=== PATIENT | female | born 1990 | race Caucasian/White ===

== ENCOUNTER 2018-09-25 12:49 | Emergency (ER) | payer SELFPAY ==
[2018-09-25 13:31] VITALS: BP 115/66
--- NOTE | 2018-09-25 14:17 | UC ---
Abdominal Pain Female HPI - HPI Summary HPI Summary: Pt presents with c/o low back pressure and pain X 1 month. Pt denies injury, risk fr STD's or . Has positive hx of kidney stones. Denies urinary symptoms. Also, reports that she has had "night sweats" for the past three months that are intermittent. Pt states she has a HX of PCOS but has not missed a period. Has not had a period in over 28 days. - History of Current Complaint Chief Complaint: UCAbdominalPain Stated Complaint: ABD CRAMPS x1 MONTH Time Seen by Provider: 09/25/18 13:32 Hx Obtained From: Patient Hx Last Menstrual Period: 08/11/18 ?: No Onset/Duration: Gradual Onset, Lasting Weeks, Still Present Timing: Constant Severity Initially: Mild Severity Currently: Moderate Pain Intensity: 4 Location: Diffuse Radiates: Yes Radiates to: Back, Other - suprapubic Character: Aching, Dull Aggravating Factor(s): Movement Alleviating Factor(s): Nothing Associated Signs and Symptoms: Positive: Diaphoresis - at night, Back Pain - Risk Factors Ectopic Risk Factor: Negative Ovarian Torsion Risk Factor: Reproductive Age Allergies/Adverse Reactions: Allergies Allergy/AdvReac Type Severity Reaction Status Date / Time No Known Allergies Allergy Verified 09/25/18 13:24 Home Medications: Home Medications Diphenhydram/PE/Dm/Acetamin/GG [Daytime-Cold [id number]-Jdc] 2 each PO BID PRN 09/25/18 [History Confirmed 09/25/18] PMH/Surg Hx/FS Hx/Imm Hx Previously Healthy: Yes - PCOS but does not take any medicaiton, had no difficulty getting Other History Of: Negative For: HIV, Hepatitis B, Hepatitis C, Anticoagulant Therapy - Surgical History Surgical History: Yes Surgery Procedure, Year, and Place: Leep procedure. D&C - Family History Known Family History: Positive: Cardiac Disease - Social History Occupation: Employed Full-time Lives: With Family Alcohol Use: Occasionally Substance Use Type: None Smoking Status (MU): Never Smoked Tobacco Have You Smoked in the Last Year: No Review of Systems All Other Systems Reviewed And Are Negative: Yes Constitutional: Positive: Negative Skin: Positive: Negative Eyes: Positive: Negative ENT: Positive: Negative Respiratory: Positive: Negative Cardiovascular: Positive: Negative Gastrointestinal: Positive: Abdominal Pain Motor: Positive: Negative Neurovascular: Positive: Negative Musculoskeletal: Positive: Negative Neurological: Positive: Negative Psychological: Positive: Negative Is Patient Immunocompromised?: No Physical Exam Triage Information Reviewed: Yes Appearance: Well-Appearing Vital Signs: Initial Vital Signs Temp 98.5 F 09/25/18 13:26 Pulse 88 09/25/18 13:26 Resp 16 09/25/18 13:26 BP 115/66 09/25/18 13:26 Pulse Ox 99 09/25/18 13:26 Vital Signs Reviewed: Yes Eye Exam: Normal ENT Exam: Normal Dental Exam: Normal Neck exam: Normal Respiratory Exam: Normal Cardiovascular Exam: Normal Abdomen Description: Positive: Other: - suprapubic tenderness, left low back that radiates to LLQ Musculoskeletal Exam: Normal Neurological Exam: Normal Psychological Exam: Normal Skin Exam: Normal Abd Pain Female Course/Dx - Differential Dx/Diagnosis Differential Diagnosis: Ovarian Cyst, Urinary Tract Infection Provider Diagnosis: Pelvic pain, Low back pain, History of night sweats Discharge - Sign-Out/Discharge Documenting (check all that apply): Patient Departure All imaging exams completed and their final reports reviewed: No Studies - Discharge Plan Condition: Stable Disposition: HOME Patient Education Materials: Pelvic Pain in Women (ED) Referrals: [facility] [Outside] - If Needed Indio Pacheco MD [Medical Doctor] - As Soon As Possible No Primary Care Phys,NOPCP [Primary Care Provider] - - Billing Disposition and Condition Condition: STABLE Disposition: Home
== END 2018-09-25 14:22 | disposition home or self-care (01) ==
LOC: UCCORT 12:49
DX: M54.5 Low back pain (principal); R10.2 Pelvic and perineal pain; R10.9 Unspecified abdominal pain; R10.814 Left lower quadrant abdominal tenderness; Z86.39 Personal history of other endocrine, nutritional and metabolic disease
CPT/HCPCS: 81003; 84702; 99211; G0463